=== PATIENT | female | born 1955 | race Caucasian/White ===

== ENCOUNTER 2021-01-17 10:44 | Outpatient (CLI) | payer MEDICARE, SELFPAY | END 2021-01-17 10:45 | disposition home or self-care (01) | LOC: ANHCOVIDVC 10:44 | PROVIDERS: PCP Internal Medicine | DX: Z23 Encounter for immunization (principal) | CPT/HCPCS: 0001A; 91300 ==

== ENCOUNTER 2021-02-07 10:42 | Outpatient (CLI) | payer MEDICARE, SELFPAY | END 2021-02-07 10:43 | disposition home or self-care (01) | LOC: ANHCOVIDVC 10:42 | PROVIDERS: PCP Internal Medicine | DX: Z23 Encounter for immunization (principal) | CPT/HCPCS: 0002A; 91300 ==

== ENCOUNTER 2021-07-20 13:04 | Outpatient (CLI) | payer MEDICARE, SELFPAY | END 2021-07-20 13:05 | disposition home or self-care (01) | LOC: ANHBWCAUD 13:05 | PROVIDERS: PCP Internal Medicine; Visit Provider Internal Medicine | DX: H91.93 Unspecified hearing loss, bilateral (principal) | CPT/HCPCS: 92557; 92567 ==

== ENCOUNTER → 2021-10-04 17:43 | Outpatient (CLI) | payer MEDICARE, SELFPAY ==
--- NOTE | ~2021-10-04 | DEXA_ITS ---
Bone Density Report Name: Opal Bustillo Age: 66 Sex: Female Ethnicity: White Date of : 1955 Indication: postmenopausal; screening for osteoporosis; Referring Provider: Mauro Juarez Study: Bone densitometry was performed. Exam Date: October 04, 2021 Accession number: [id number] Bone Density: Region BMD T-score Z-score Classification AP Spine (L1-L4) 0.789 -2.3 -0.4 Osteopenia Femoral Neck (Left) 0.672 -1.6 0.1 Osteopenia Total Hip (Left) 0.792 -1.2 0.2 Osteopenia Femoral Neck (Right) 0.636 -1.9 -0.2 Osteopenia Total Hip (Right) 0.759 -1.5 -0.1 Osteopenia Total Hip Mean 0.776 -1.4 0.1 Osteopenia World Health Organization criteria for BMD impression classify patients as: Normal (T-score at or above -1.0), Osteopenia (T-score between -1.0 and -2.5), or Osteoporosis (T-score at or below -2.5). 10-year Fracture Risk(1): Major Osteoporotic Fracture 10% Hip Fracture 1.8% Reported Risk Factors: [place] (), Neck BMD=0.636, BMI=21.2 (1) FRAX(R) Version 3.08. Fracture probability calculated for an untreated patient. Fracture probability may be lower if the patient has received treatment. Clinical Information Provided by Patient: Patient maximum height was 65 Menopause Age: 48 Drinks caffeinated beverages Onset of menses at age 10 Number of children 2 Impression: The patient has low bone mass, based on the Total Spine T-score. The patient has an estimated ten-year risk of hip fracture of 1.8% and an estimated ten-year risk of major fracture of 10%, based on the WHO FRAX algorithm. Discussion: BONE DENSITY IS LOW AT ONE OR MORE SKELETAL SITES. This patient's lowest T-score is low at one or more skeletal sites. It meets the World Health Organization's (WHO) criteria for ?low bone mass? (T-score between -1.0 and -2.5). The patient's 10-year risk of fracture as calculated by FRAX is less than the threshold where pharmacological therapy is recommended by the National Osteoporosis Foundation (NOF). However, all treatment decisions require clinical judgment and consideration of individual patient factors, including patient preferences, comorbidities, previous drug use, risk factors not captured in the FRAX model (e.g., frailty, falls, vitamin D deficiency, increased bone turnover, interval significant decline in bone density) and possible under or overestimation of fracture risk by FRAX. The patient should follow a healthful lifestyle (good nutrition with adequate calcium and vitamin D, and appropriate weight-bearing exercise). Follow-Up: Consider repeating this study in 2 to 3 years to reassess this patient's status, or sooner if there is some new clinical indication. Reported by: [facility] on 10/04/2021 6:15:00 PM. Jerica, hanh
--- NOTE | ~2021-10-04 | MM_ITS ---
EXAMINATION: MM screening [facility] BI w yessica HISTORY: Screening mammogram TECHNIQUE: Craniocaudal and mediolateral oblique 3-D tomosynthesis images were obtained and synthetic 2-D images were generated. CAD analysis was submitted and interpreted. COMPARISON: No prior mammogram is available for comparison at this institution. BREAST PARENCHYMAL COMPOSITION: There are scattered areas of fibroglandular density. FINDINGS: Occasional benign calcifications. There is no evidence of suspicious mass, calcification, o r architectural distortion to suggest malignancy in either breast. There has been no suspicious inter zoraida change. IMPRESSION: 1. No mammographic evidence of malignancy. 2. Recommend routine screening mammography in one year. BI-RADS Category 2: Benign finding(s). Reviewed, dictated and finalized at location A. NALISTS AND OTHER WRITERS
== END ==
PROVIDERS: PCP Internal Medicine
DX: Z12.31 Encounter for screening mammogram for malignant neoplasm of breast (principal); Z78.0 Asymptomatic menopausal state; M85.88 Other specified disorders of bone density and structure, other site; M85.851 Other specified disorders of bone density and structure, right thigh; M85.852 Other specified disorders of bone density and structure, left thigh
CPT/HCPCS: 77063; 77067; 77080

== ENCOUNTER 2022-06-25 09:27 | Outpatient (CLI) | payer MEDICARE, SELFPAY ==
[2022-06-25 19:24] LABS: Alanine Aminotransferase 21 U/L (6-35); Albumin Level 4.7 g/dL (3.5-5.1); Alkaline Phosphatase 90 U/L (38-126); Anion Gap 8 mmol/L (8-16); Aspartate Amino Transferase 36 U/L (14-36); Bilirubin,Total 1.3 mg/dL (0.2-1.3); Blood Urea Nitrogen 16 mg/dL (7-17); Carbon Dioxide 30 mmol/L (22-30); Chloride 104 mmol/L (98-107); Cholesterol 181 mg/dL (0-200); Estimated Glomerular Filt Rate > 60; Glucose 96 mg/dL (65-110); HDL Direct 66 mg/dL; Sodium 142 mmol/L (137-145); Triglycerides 101 mg/dL (<150)
[2022-06-25 19:35] LABS: LDL Cholesterol Direct 75 mg/dL
== END 2022-06-25 09:28 | disposition home or self-care (01) ==
LOC: ANHGOSHLAB 09:30
PROVIDERS: PCP Internal Medicine; Visit Provider Family Medicine
DX: E78.00 Pure hypercholesterolemia, unspecified (principal); Z13.228 Encounter for screening for other metabolic disorders
CPT/HCPCS: 36415; 80053; 80061

== ENCOUNTER → 2022-12-12 10:51 | Outpatient (CLI) | payer MEDICARE, SELFPAY ==
--- NOTE | ~2022-12-12 | MM_ITS ---
EXAMINATION: MM screening [facility] BI w yessica HISTORY: Screening mammogram, family history of breast cancer in her mother. TECHNIQUE: Craniocaudal and mediolateral oblique 3-D tomosynthesis images were obtained and synthetic 2-D images were generated. CAD analysis was submitted and interpreted. COMPARISON: 10/04/2021 BREAST PARENCHYMAL COMPOSITION: There are scattered areas of fibroglandular density. FINDINGS: RIGHT BREAST: An asymmetry is present in the middle/posterior third of the central, slightly outer br east on the craniocaudal view. LEFT BREAST: No suspicious mass, calcification, or architectural distortion are identified to suggest malignancy. There has been no suspicious interval change. IMPRESSION: 1. Right breast asymmetry on the craniocaudal view. 2. Additional mammographic views and possible breast ultrasound are recommended. BI-RADS Category 0: Incomplete: Needs additional imaging evaluation. Reviewed, dictated and finalized at location A. DLE SETTER IMPRESSION: 1. Right breast asymmetry on the craniocaudal view. 2. Additional mammographic views and possible breast ultrasound are recommended . BI-RADS Category 0: Incomplete: Needs additional imaging evaluation.
== END ==
PROVIDERS: PCP Family Medicine
DX: Z12.31 Encounter for screening mammogram for malignant neoplasm of breast (principal); N64.89 Other specified disorders of breast
CPT/HCPCS: 77063; 77067

== ENCOUNTER → 2023-01-01 09:45 | Outpatient (CLI) | payer MEDICARE, SELFPAY ==
--- NOTE | ~2023-01-01 | MMUS_ITS ---
EXAMINATION: MM diagnostic franco RT w yessica, US breast RT limited HISTORY: Right breast asymmetry reported on 12/12 2022 screening mammogram TECHNIQUE: Additional 3-D tomosynthesis images of the right breast were performed and synthetic 2-D i mages were generated. CAD analysis was submitted and interpreted. High resolution upper inner quadran t and upper outer quadrant right breast ultrasound was performed. COMPARISON: 12/12/2022 bilateral screening mammogram FINDINGS: MAMMOGRAPHIC FINDINGS: No suspicious mass, architectural distortion, malignant calcifications, skin thickening or retraction is noted. There is a prominent benign calcification in the medial subareolar area. ULTRASOUND: Shadowing is noted from the probably calcified benign appearing density in the medial subareolar area . No suspicious mass or shadowing is detected elsewhere in the upper outer or upper inner quadrants. IMPRESSION: 1. No mammographic evidence of malignancy 2. Routine mammographic screening is recommended BI-RADS Category 2: Benign finding(s). Reviewed, dictated and finalized at location A. HAULER IMPRESSION: 1. No mammographic evidence of malignancy 2. Routine mammographic screening is recommended BI-RADS Category 2: Benign finding(s).
== END ==
PROVIDERS: PCP Family Medicine
DX: R92.8 Other abnormal and inconclusive findings on diagnostic imaging of breast (principal)
CPT/HCPCS: 76642; 77061; 77065; G0279

== ENCOUNTER 2023-07-01 08:50 | Outpatient (CLI) | payer MEDICARE, SELFPAY ==
[2023-07-01 19:39] LABS: Alanine Aminotransferase 23 U/L (6-35); Albumin Level 4.6 g/dL (3.5-5.1); Alkaline Phosphatase 102 U/L (38-126); Anion Gap 8 mmol/L (8-16); Aspartate Amino Transferase 39 U/L (14-36); Blood Urea Nitrogen 14 mg/dL (7-17); Calcium 9.3 mg/dL (8.4-10.2); Carbon Dioxide 31 mmol/L (22-30); Chloride 102 mmol/L (98-107); Estimated Glomerular Filt Rate > 60; Glucose 68 mg/dL (65-110); Potassium 4.7 mmol/L (3.4-5.0); Sodium 141 mmol/L (137-145)
[2023-07-01 19:49] LABS: Thyroid Stimulating Hormone Reflex 0.681 uIU/mL (0.465-4.68)
== END 2023-07-01 08:51 | disposition home or self-care (01) ==
PROVIDERS: PCP Family Medicine; Visit Provider Family Medicine
DX: E78.00 Pure hypercholesterolemia, unspecified (principal); Z13.29 Encounter for screening for other suspected endocrine disorder; Z13.228 Encounter for screening for other metabolic disorders
CPT/HCPCS: 36415; 80053; 84443

== ENCOUNTER 2024-01-15 13:55 | Outpatient (CLI) | payer MEDICARE, SELFPAY ==
--- NOTE | ~2024-01-15 | MM_ITS ---
EXAMINATION: MM screening [facility] BI w yessica HISTORY: Screening TECHNIQUE: Craniocaudal and mediolateral oblique 3-D tomosynthesis images were obtained and synthetic 2-D images were generated. CAD analysis was submitted and interpreted. COMPARISON: Comparison to multiple prior studies sequentially, with oldest reviewed study dated 09/17. BREAST PARENCHYMAL COMPOSITION: There are scattered areas of fibroglandular density. FINDINGS: There is no evidence of suspicious mass, calcification, or architectural distortion to sugg est malignancy in either breast. There has been no suspicious interval change. IMPRESSION: 1. No mammographic evidence of malignancy. 2. Recommend routine screening mammography in one year. BI-RADS Category 1: Negative Reviewed, dictated and finalized at location A. ISH THINNER
== END 2024-01-15 13:56 ==
DX: Z12.31 Encounter for screening mammogram for malignant neoplasm of breast (principal)
CPT/HCPCS: 77063; 77067

== ENCOUNTER 2024-04-21 13:07 | Outpatient (CLI) | payer MEDICARE, SELFPAY ==
--- NOTE | ~2024-04-21 | DEXA_ITS ---
Bone Density Report Name: AILEEN STALEY Age: 68 Sex: Female Ethnicity: White Date of : 1955 Indication: osteopenia; Referring Provider: AKUA, KETURAH Study: Bone densitometry was performed. Exam Date: April 21, 2024 Accession number: [id number] Bone Density: Region BMD T-score Z-score Classification AP Spine (L1-L4) 0.729 -2.9 -0.7 Osteoporosis Femoral Neck (Left) 0.651 -1.8 0.1 Osteopenia Total Hip (Left) 0.770 -1.4 0.1 Osteopenia Femoral Neck (Right) 0.605 -2.2 -0.4 Osteopenia Total Hip (Right) 0.745 -1.6 -0.1 Osteopenia Total Hip Mean 0.758 -1.5 0.0 Osteopenia World Health Organization criteria for BMD impression classify patients as: Normal (T-score at or above -1.0), Osteopenia (T-score between -1.0 and -2.5), or Osteoporosis (T-score at or below -2.5). 10-year Fracture Risk: FRAX not reported because: Some T-score for Spine Total or Hip Total or Femoral Neck at or below -2.5 Previous Exams: Region Exam Age BMD T-score BMD Change BMD Change Date g/cm2 vs Baseline vs Previous AP Spine(L1-L4) 04/21/2024 68 0.729 -2.9 -0.060* -0.060* 10/04/2021 66 0.789 -2.3 Total Hip(Left) 04/21/2024 68 0.770 -1.4 -0.022 -0.022 10/04/2021 66 0.792 -1.2 Total Hip(Right) 04/21/2024 68 0.745 -1.6 -0.014 -0.014 10/04/2021 66 0.759 -1.5 *Denotes significance at 95% confidence level, LSC for AP Spine = 0.022 g/cm2, LSC for Total Hip = 0.027 g/cm2 Clinical Information Provided by Patient: Has used the following medications: Calcium, vit D3 in calcium, MTV Patient maximum height was 65 Menopause Age: 48 Drinks caffeinated beverages Onset of menses at age 10 Number of children 2 Impression: The patient has osteoporosis, based on the Total Spine T-score. The BMD for the AP Spine(L1-L4) decreased, changing by -0.060 since the last DXA exam. Discussion: INCREASED RISK OF FRACTURE. BONE DENSITY IS UNDESIRABLY LOW AT ONE OR MORE SKELETAL SITES, CONSISTENT WITH POSTMENOPAUSAL OSTEOPOROSIS. This patient's lowest T-score meets the World Health Organization's (WHO) criteria for osteoporosis at one or more sites (T-score -2.5 or below). In untreated patients, the risk of osteoporotic fracture increases approximately two-fold for each 1.0 SD decrease in T-score. Low bone density is not the only risk factor for fracture; also consider factors such as patient's age, frailty or poor health, risk of falling, risk of injury, previous osteoporotic fracture, family history of osteoporosis,
== END 2024-04-21 13:08 ==
LOC: MICIMG 13:08
PROVIDERS: PCP Family Medicine
DX: M81.0 Age-related osteoporosis without current pathological fracture (principal); M85.89 Other specified disorders of bone density and structure, multiple sites
CPT/HCPCS: 77080

== ENCOUNTER 2024-06-29 09:01 | Outpatient (CLI) | payer MEDICARE, SELFPAY ==
[2024-06-29 19:41] LABS: Alanine Aminotransferase 19 U/L (6-35); Albumin Level 4.5 g/dL (3.5-5.1); Alkaline Phosphatase 93 U/L (38-126); Anion Gap 9 mmol/L (4-12); Aspartate Amino Transferase 36 U/L (14-36); Bilirubin,Total 0.8 mg/dL (0.2-1.3); Blood Urea Nitrogen 14 mg/dL (7-17); Calcium 8.8 mg/dL (8.4-10.2); Carbon Dioxide 30 mmol/L (22-30); Chloride 102 mmol/L (98-107); Cholesterol 236 mg/dL (0-200); Estimated Glomerular Filt Rate > 60; Glucose 94 mg/dL (65-110); HDL Direct 72 mg/dL; Potassium 4.3 mmol/L (3.4-5.0); Sodium 141 mmol/L (137-145); Triglycerides 182 mg/dL (<150)
[2024-06-29 19:43] LABS: Thyroid Stimulating Hormone Reflex 0.595 uIU/mL (0.465-4.68)
[2024-06-29 19:52] LABS: LDL Cholesterol Direct 120 mg/dL
== END 2024-06-29 09:02 | disposition home or self-care (01) ==
LOC: ANHGOSHLAB 09:02
PROVIDERS: PCP Family Medicine; Visit Provider Family Medicine
DX: E78.00 Pure hypercholesterolemia, unspecified (principal); Z13.220 Encounter for screening for lipoid disorders; Z13.228 Encounter for screening for other metabolic disorders; Z13.29 Encounter for screening for other suspected endocrine disorder
CPT/HCPCS: 36415; 80053; 80061; 84443

== ENCOUNTER 2024-10-22 10:22 | Emergency (ER) | payer MEDICARE, SELFPAY ==
--- NOTE | 2024-10-22 10:31 | ED_ITS ---
HPI - URI/Sore Throat General Chief Complaint: Upper Respiratory Infection Stated Complaint: cold/sinus Time Seen by Provider: 10/22/24 10:31 Source: patient and RN notes reviewed Mode of arrival: ambulatory Limitations: no limitations History of Present Illness HPI Narrative: 69-year-old female presents with concern for 2 week history of cough. She reports symptoms started after she inhaled smoke. She reports since then she has had a dry hacking cough. She denies body aches, chills, sweats. Reports mild rhinorrhea. Denies fevers. She reports taking antihistamines MD elicited complaint: cough Related Data Home Medications Medication Instructions Recorded Confirmed calcium 315 mg (as 1 tablet PO BID 06/25/22 06/29/24 citrate)-vitamin D3 6.25 mcg (250 unit) tablet (Citracal + Vitamin D Maximum) denosumab 60 mg/mL subcutaneous 60 mg subcut [id number] 06/29/24 06/29/24 syringe (Prolia) Allergies Allergy/AdvReac Type Severity Reaction Status Date / Time No Known Allergies Allergy Unknown Verified 06/29/24 08:34 Review of Systems Review of Systems: CONSTITUTIONAL: Denies malaise, chills, sweats, or fever. EYES: Denies visual changes, redness, or discharge. ENT: Reports rhinorrhea. Did congestion, sinus pain, otalgia and sore throat. CARDIOVASCULAR: Denies chest pain, palpitations, or edema. RESPIRATORY: Reports cough. Denies dyspnea. GASTROINTESTINAL: Denies abdominal pain, nausea, vomiting, diarrhea SKIN: Denies rash or itching. MUSCULOSKELETAL: Denies myalgia. NEUROLOGIC: Denies headache. All systems reviewed & are unremarkable except as noted in HPI and below PMFSH Surgical History Surgical History History of bunionectomy (~2022) Family History Family History Sibling Family history of elevated blood lipids Family history of kidney stones Father Family history of chronic obstructive pulmonary disease Social History Social History Social History: caffeine 8oz soda daily Smoking status: Never smoker Alcohol intake: current Drinks per week: 3 Substance use: never Lack of Transportation: No Lack of Food: Never True Current Housing: I Have Housing Concerned About Future Housing: No Difficulty Paying Gas/Electric Bills: No Difficulty Paying for Meds: No Currently Unemployed: No Education: Bachelor's Degree Difficulty w/ Childcare or Family Care: No Comments At time of signature, agree with nursing past medical, surgical, social and family history. There is no relevant family history pertinent to the presenting complaint Exam Narrative: GENERAL: Well-appearing, well-nourished, and in no acute distress. HEAD: Normocephalic EYES: PERRLA, conjunctivae clear ENT: Nares clear. Mucous membranes moist. TM pearly lawler with dull light reflex bilaterally; no tragal tenderness. Oropharynx not erythematous without lesions. Tonsils not enlarged and without exudate, no drooling, no hoarseness, no trismus, uvula midline. NECK: Supple. No lymphadenopathy CHEST: Clear to auscultation, breath sounds equal. No wheezing, rhonchi, rales, or stridor. No respiratory distress, speaks in full sentences. HEART: Regular rate and rhythm. No murmur heard. SKIN: Warm, dry, no rash. NEURO: Alert and oriented x3. PSYCH: Normal mood and affect Course Course Emergency Course: Patient is aware of diagnosis, understands and agrees to treatment plan. Anticipatory guidance given. Patient agrees to follow-up as directed and is aware of reasons to seek care at the emergency department. Portions of this record may have been created with voice recognition software Level of Care: Express Care Visit Vital Signs Vital signs: Reviewed. MDM - URI/Sore Throat MDM Narrative Medical decision making narrative: Differential diagnosis considered: Rene virus, strep pharyngitis, allergic rhinitis, upper respiratory tract infection, sinusitis, rhinosinusitis, nasopharyngitis. viral pharyngitis, otitis media, otitis externa, pneumonia, bronchitis, viral cough syndrome, viral syndrome, and influenza. Exam findings show no acute concerns or changes; patient is non-toxic appearing and is in no distress. Patient is appropriate for outpatient treatment and follow-up. Lab Data Attestation: I reviewed the patient's lab results. Critical Care Time Critical Care Time Critical Care Time: No Discharge Plan Discharge Clinical Impression: Bronchitis Patient Disposition: Home, Self-Care Condition: Stable Instructions: Antibiotic Form, Acute Bronchitis (ED) Additional Instructions: Take medications as prescribed Recommend antihistamine such as Benadryl at night time and Zyrtec or Isa during the day Cough syrup may cause drowsiness; avoid driving or take it at night time. Also, recommend symptomatic treatment includes: rest, fluids, and increase humidity of the air at home. Recommend Acetaminophen as directed on the bottle to reduce fever, pain, headache. Avoid smoking/second-hand smoke. Please schedule a follow-up visit with your personal physician for further evaluation and treatment within 3-5days. If your symptoms persist, change or wor sen significantly before you can contact your personal physician then please, without delay, go to the emergency department for further evaluation. Prescriptions: New methylprednisolone [Medrol (Krystian)] 4 mg tablets,dose pack See Rx Instructions .ROUTE .COMPLEX Qty: 21 0RF Rx Instructions: orally per package directions promethazine-DM 6.25-15 mg/5 mL syrup 5 ml PO Q4-6H PRN (Reason: cough) Qty: 120 0RF No Action Prolia 60 mg/mL syringe 60 mg subcut [id number] Patient Comments: last injection 05/16/24 calcium citrate-vitamin D3 [Citracal + D Maximum] 315 mg-6.25 mcg (250 unit) tablet 1 tablet PO BID simvastatin 20 mg tablet 10 mg PO DAILY Qty: 90 0RF cetirizine 10 mg tablet 10 mg PO DAILY Qty: 90 3RF Follow-up/Referrals: Emeka Lincoln DO [Primary Care Provider] - Time of Disposition: 10:41
[2024-10-22 10:39] VITALS: BP 141/71; PULSE 88; RESP 20; TEMP 37.4; O2SAT 100
== END 2024-10-22 10:45 | disposition home or self-care (01) ==
PROVIDERS: Emergency Provider Nurse Practitioner; PCP Family Medicine
DX: J40 Bronchitis, not specified as acute or chronic (principal)
CPT/HCPCS: 99211; 99213; G0463

== ENCOUNTER 2025-01-18 10:31 | Outpatient (CLI) | payer MEDICARE, SELFPAY | END 2025-01-18 10:32 | disposition home or self-care (01) | PROVIDERS: PCP Family Medicine | DX: Z12.31 Encounter for screening mammogram for malignant neoplasm of breast (principal) | CPT/HCPCS: 77063; 77067 ==

== ENCOUNTER 2025-03-02 15:48 | Outpatient (CLI) | payer MEDICARE, SELFPAY ==
--- OUTSIDE RECORDS SUMMARY | 2025-03-02 16:48 | XMS_ITS | Referral Summary ---
Author Organization [facility] Address [address] [place] [address] Care Team Providers Care Tree Killer Name Role Phone Naeem Ramírez MD Primary Care Provider [phone] Encounters Date Type Department Care Team Description 01/18/2025 Results Follow-Up [facility]'s [address] [phone] Mauro Juarez MD 01/18/2025 Orders Only [address] [phone] Mauro Juarez MD 12/31/2024 2:15 PM MOTOR WINDER Office Visit [address] [phone] Mauro Juarez MD Menopausal syndrome (Primary Dx); Age-related osteoporosis without current pathological fracture; Postmenopausal atrophic vaginitis from Last 3 Months Allergies No known active allergies Medications cetirizine (ZyrTEC) 10 mg tablet TAKE 1/2 TAB BY MOUTH DAILY 10/18/2019 Active calcium citrate/vitamin D3 (CITRACAL + D MAXIMUM ORAL) Take by mouth Active simvastatin (ZOCOR) 20 mg tablet TAKE 0.5 TABLET BY MOUTH DAILY 12/27/2024 Active Active Problems Problem Noted Date Diagnosed Date Senile osteoporosis 05/07/2024 Atrophic vaginitis 01/04/2015 Overview (02/20/2017): Vaginal atrophy Social History Tobacco Use Types Packs/Day Years Used Date Smoking Tobacco: Never Smokeless Tobacco: Never Tobacco Cessation:Counseling Given: Not Answered Alcohol Use Standard Drinks/Week Comments Yes 0 (1 standard drink = 0.6 oz pur e alcohol) Comments No Sex and Gender Information Value Date Recorded Sex Assigned at Not on file Legal Sex Female 2:08 AM MOTOR WINDER Gender Identity Not on file Sexual Orientation Not on file Last Filed Vital Signs Vital Sign Reading Time Taken Comments Blood Pressure 125/75 12/31/2024 2:00 PM MOTOR WINDER Pulse - - Temperature - - Respiratory Rate - - Oxygen Saturation - - Inhaled Oxygen Concentration - - Weight 60.8 kg (134 lb) 12/31/2024 2:00 PM MOTOR WINDER Height 165.1 cm (5' 5 ) 12/31/2024 2:00 PM MOTOR WINDER Body Mass Index 22.3 12/31/2024 2:00 PM MOTOR WINDER Plan of Treatment Not on file Procedures Procedure Name Priority Date/Time Associated Diagnosis Comments SCAN - RADIOLOGY/IMAGING 01/18/2025 11:38 AM MOTOR WINDER SCREENING MAMMOGRAM 2D BILATERAL Schedule Routine, Read Routine (OP Routine) 10/05/2021 DEXA AXIAL SKELETON BONE DENSITY 1 OR MORE SITES Schedule Routine, Read Routine (OP Routine) 10/04/2021 from Last 3 Months or Most Recently Relevant to Health Maintenance Results * SCAN - RADIOLOGY/IMAGING (01/18/2025 11:38 AM MOTOR WINDER) Anatomical Region Laterality Modality Other Mauro Juarez MD Final Result * Screening Mammogram 2D Bilateral (10/05/2021) Anatomical Region Laterality Modality Breast Bilateral Mammography us Mauro Juarez MD [place] MAMMO PROCEDURES Final Res ult * Dexa Axial Skeleton Bone Density 1 or 2 Site (10/04/2021) Anatomical Region Laterality Modality Body N/A Radiographic Haley ging us Mauro Juarez MD IMG DXA PROCEDURES Final Resul t from Last 3 Months or Most Recently Relevant to Health Maintenance Insurance MEDICARE COMMERCIAL GENERIC MEDICARE COMMERCIAL GENERIC MEDICARE COMMERCIAL GENERIC Care Teams Tree Killer Relationship Specialty Start Date End Date Naeem Ramírez MD [address] [place] [address] PCP - General 05/19/17
--- OUTSIDE RECORDS SUMMARY | 2025-03-02 16:48 | XMS_ITS | Clinical Summary ---
Author Organization [facility] Address [address] [place] [address] Phone Care Team Providers Care Swimming Instructor Name Role Phone Naeem Ramírez MD Primary Care Provider [phone] Medications No known medications Social History Tobacco Use Types Packs/Day Years Used Date Smoking Tobacco: Never Assessed Comments Unknown Sex and Gender Information Value Date Recorded Sex Assigned at Not on file Legal Sex Female 10:57 AM CDT Gender Identity Not on file Sexual Orientation Not on file Plan of Treatment Health Maintenance Due Date Last Done Comments Hepatitis C Virus (HCV) Screening 1955 TdaP Immunization 1955 Colonoscopy 1998 Colorectal Cancer Screening 1998 Cologuard 2003 Immunochemical Fecal Occult Blood 2003 Pneumococcal Immunization (5 0+ years) (1 of 1 - PCV) 2003 Zoster Immunization (1 of 2) 2003 Influenza Immunization (#1) 07/18/202407/18, 08/28/2016 SARS-COV-2 Immunization ( season) 2024 08/21/2021, 02/07/2021, 01/17/2021 Respiratory Syncytial Virus (RSV) Immunization (Adult) (1 - 1-dose 75+ series) 2028 Hepatitis B Immunization Aged Out No longer eligible based on patient's age to complete this topic Meningococcal Immunization (ACWY) Aged Out No longer eligible b ased on patient's age to complete this topic Rotavirus Immunization Aged Out No lo nger eligible based on patient's age to complete this topic Insurance MEDICARE [facility] ADDRESS Care Teams Swimming Instructor Relationship Specialty Start Date End Date Naeem Ramírez MD [address] [place] [address] [address] [place] [address] PCP - General Internal Medicine 04/17/18
--- OUTSIDE RECORDS SUMMARY | 2025-03-02 16:48 | XMS_ITS | Clinical Summary ---
Author Organization [facility] Address [address] [place] [address] Care Team Providers Care Director Of Automation Name Role Phone Naeem Ramírez MD Primary Care Provider [phone] Allergies No known active allergies Medications cetirizine (ZyrTEC) 10 mg tablet TAKE 1/2 TAB BY MOUTH DAILY 10/18/2019 Active calcium citrate/vitamin D3 (CITRACAL + D MAXIMUM ORAL) Take by mouth Active simvastatin (ZOCOR) 20 mg tablet TAKE 0.5 TABLET BY MOUTH DAILY 12/27/2024 Active Active Problems Problem Noted Date Diagnosed Date Senile osteoporosis 05/07/2024 Atrophic vaginitis 01/04/2015 Overview (02/20/2017): Vaginal atrophy Encounters Date Type Department Care Team Description 01/18/2025 Results Follow-Up [facility] [address] [address] Mauro Juarez MD 01/18/2025 Orders Only [facility] [address] [address] Mauro Juarez MD 12/31/2024 2:15 PM COUNTER CUTTER Office Visit [facility] [address] [address] Mauro Juarez MD Menopausal syndrome (Primary Dx); Age-related osteoporosis without current pathological fracture; Postmenopausal atrophic vaginitis from Last 3 Months Surgical History Surgery Date Site/Laterality Comments OTHER SURGICAL HISTORY 1981 Preg: OTHER SURGICAL HISTORY Osteoporosis: Drug therapy Medical History Medical History Date Comments Hx Other Medical Preg Osteoporosis Osteoporosis Social History Tobacco Use Types Packs/Day Years Used Date Smoking Tobacco: Never Smokeless Tobacco: Never Tobacco Cessation:Counseling Given: Not Answered Alcohol Use Standard Drinks/Week Comments Yes 0 (1 standard drink = 0.6 oz pur e alcohol) Comments No Sex and Gender Information Value Date Recorded Sex Assigned at Not on file Legal Sex Female 2:08 AM COUNTER CUTTER Gender Identity Not on file Sexual Orientation Not on file Obstetrics History Last Filed Vital Signs Vital Sign Reading Time Taken Comments Blood Pressure 125/75 12/31/2024 2:00 PM COUNTER CUTTER Pulse - - Temperature - - Respiratory Rate - - Oxygen Saturation - - Inhaled Oxygen Concentration - - Weight 60.8 kg (134 lb) 12/31/2024 2:00 PM COUNTER CUTTER Height 165.1 cm (5' 5 ) 12/31/2024 2:00 PM COUNTER CUTTER Body Mass Index 22.3 12/31/2024 2:00 PM COUNTER CUTTER Plan of Treatment Health Maintenance Due Date Last Done Comments Colon Cancer Screening-Colonoscopy 1955 Depression Screening 1955 Fall Risk Assessment 1955 Hepatitis C Screening 1955 Hepatitis B Screening 1971 Well Visit 65+ 12/01/2018 12/01/2017 DTaP/Tdap/Td Vaccine (2 - Td or Tdap) 12/03/2020 12/03/2010 Breast Cancer Screening-Mammogram 10/05/2022 10/05/2021, 08/24/2020, 06/28/2019, Additional history exists Osteoporosis Screening-Bone Density Scan 10/04/2023 10/04/2021, 10/04/2021, 03/03/2019 Influenza Vaccine (#1) 2024 9, 08/23/2018, 07/29/2017, Additional history exists Pneumococcal vaccine 65+ Completed 08/18/2019, 05/2018 Zoster Vaccine Completed 09/13/2019, 04/15/2019 Procedures Procedure Name Priority Date/Time Associated Diagnosis Comments SCAN - RADIOLOGY/IMAGING 01/18/2025 11:38 AM COUNTER CUTTER SCREENING MAMMOGRAM 2D BILATERAL Schedule Routine, Read Routine (OP Routine) 10/05/2021 DEXA AXIAL SKELETON BONE DENSITY 1 OR MORE SITES Schedule Routine, Read Routine (OP Routine) 10/04/2021 from Last 3 Months or Most Recently Relevant to Health Maintenance Results * SCAN - RADIOLOGY/IMAGING (01/18/2025 11:38 AM COUNTER CUTTER) Anatomical Region Laterality Modality Other us Mauro Juarez MD Final Result * Screening Mammogram 2D Bilateral (10/05/2021) Anatomical Region Laterality Modality Breast Bilateral Mammography Mauro Juarez MD IMG MAMMO PROCEDURES Final Res ult * Dexa Axial Skeleton Bone Density 1 or 2 Site (10/04/2021) Anatomical Region Laterality Modality Body N/A Radiographic Haley ging Mauro Juarez MD IMG DXA PROCEDURES Final Resul t from Last 3 Months or Most Recently Relevant to Health Maintenance Insurance MEDICARE COMMERCIAL GENERIC MEDICARE COMMERCIAL GENERIC MEDICARE COMMERCIAL GENERIC Care Teams Director Of Automation Relationship Specialty Start Date End Date Naeem Ramírez MD [address] [place] [address] PCP - General 05/19/17
[2025-03-02 19:54] LABS: Basophils Absolute Auto 0.1 K/mm3 (0.0-0.1); Basophils Percent Auto 0.9 % (0.2-1.2); Eosinophils Absolute Auto 0.2 K/mm3 (0-0.3); Eosinophils Percent Auto 2.2 % (0-4.4); Hematocrit 44.2 % (37.0-47.0); Hemoglobin 13.8 g/dL (12.0-15.0); Immature Granulocyte Absolute 0.02 K/mm3 (0.00-0.031); Immature Granulocyte Percent A 0.3 % (0-0.5); Lymphocytes Absolute Auto 1.69 K/mm3 (0.9-3.2); Lymphocytes Percent Auto 24.6 % (18.3-44.2); Mean Corpuscular HGB Conc 31.2 g/dl (32-36); Mean Corpuscular Hemoglobin 27.8 pg (26-34); Mean Corpuscular Volume 88.9 fl (80-100); Mean Platelet Volume 8.7 fl (7.4-10.4); Monocytes Absolute Auto 0.5 K/mm3 (0.1-0.6); Monocytes Percent Auto 6.7 % (2.6-8.5); Neutrophils Absolute Auto 4.5 K/mm3 (1.3-6.7); Neutrophils Percent Auto 65.3 % (45.5-73.1); Platelet Count Result 294 k/mm3 (150-375); Red Blood Count 4.97 M/mm3 (4.2-5.4); Red Cell Distribution Width 12.6 % (11.5-14.5); White Blood Count 6.9 K/mm3 (4.5-10.0)
[2025-03-02 20:04] LABS: Alanine Aminotransferase 29 U/L (6-35); Albumin Level 4.3 g/dL (3.5-5.1); Alkaline Phosphatase 72 U/L (38-126); Anion Gap 5 mmol/L (4-12); Aspartate Amino Transferase 41 U/L (14-36); Bilirubin,Total 0.7 mg/dL (0.2-1.3); Blood Urea Nitrogen 16 mg/dL (7-17); Calcium 9.5 mg/dL (8.4-10.2); Carbon Dioxide 31 mmol/L (22-30); Chloride 106 mmol/L (98-107); Estimated Glomerular Filt Rate > 60; Glucose 129 mg/dL (65-110); Potassium 4.1 mmol/L (3.4-5.0); Sodium 142 mmol/L (137-145)
[2025-03-02 20:19] LABS: Vitamin D 25 Hydroxy 43.5 ng/mL
[2025-03-02 20:36] LABS: Hemoglobin A1C 5.7 % (<5.7)
== END 2025-03-02 15:49 | disposition home or self-care (01) ==
PROVIDERS: PCP Family Medicine; Visit Provider Family Medicine
DX: M81.0 Age-related osteoporosis without current pathological fracture (principal); E53.8 Deficiency of other specified B group vitamins; E55.9 Vitamin D deficiency, unspecified; R73.9 Hyperglycemia, unspecified; Z79.899 Other long term (current) drug therapy
CPT/HCPCS: 36415; 80053; 82306; 82607; 83036; 85025